=== PATIENT | male | born 1955 | race Two or more races ===

== ENCOUNTER 2020-11-03 02:58 | Outpatient (CLI) | payer OTHER | END 2020-11-03 03:05 | disposition home or self-care (01) | LOC: PPH VACUNA 02:58 | PROVIDERS: ATTEND Emergency Medicine Pediatric Emergency Medicine | DX: Z23 Encounter for immunization (principal) ==

== ENCOUNTER → 2020-11-24 | Outpatient (CLI) | payer OTHER | END | disposition home or self-care (01) | LOC: PPH VACUNA | PROVIDERS: ATTEND Emergency Medicine Pediatric Emergency Medicine | DX: Z23 Encounter for immunization (principal) ==

== ENCOUNTER 2021-10-12 13:36 | Outpatient (CLI) | payer OTHER | END 2021-10-12 13:51 | disposition home or self-care (01) | LOC: RAD 13:36 | PROVIDERS: ATTEND Physical Medicine & Rehabilitation | DX: M17.0 Bilateral primary osteoarthritis of knee (principal) ==